=== PATIENT | female | born 1990 ===

== ENCOUNTER 2024-09-24 09:08 | Outpatient (CLI) | payer OTHER | END 2024-09-24 09:10 | disposition home or self-care (01) | LOC: PRENATAL 09:08 | PROVIDERS: ATTEND Obstetrics & Gynecology Maternal & Fetal Medicine | DX: O36.80X0 Pregnancy with inconclusive fetal viability, not applicable or unspecified (principal); Z36.82 Encounter for antenatal screening for nuchal translucency; Z14.8 Genetic carrier of other disease; O34.10 Maternal care for benign tumor of corpus uteri, unspecified trimester; Z3A.14 14 weeks gestation of pregnancy ==

== ENCOUNTER 2024-11-11 08:10 | Outpatient (CLI) | payer OTHER | END 2024-11-11 08:11 | disposition home or self-care (01) | LOC: PRENATAL 08:10 | PROVIDERS: ATTEND Obstetrics & Gynecology Maternal & Fetal Medicine | DX: O44.00 Complete placenta previa NOS or without hemorrhage, unspecified trimester (principal); O34.10 Maternal care for benign tumor of corpus uteri, unspecified trimester; Z3A.20 20 weeks gestation of pregnancy ==

== ENCOUNTER 2025-01-06 09:19 | Outpatient (CLI) | payer OTHER | END 2025-01-06 09:20 | disposition home or self-care (01) | LOC: PRENATAL 09:19 | PROVIDERS: ATTEND Obstetrics & Gynecology Maternal & Fetal Medicine | DX: O26.849 Uterine size-date discrepancy, unspecified trimester (principal); O34.10 Maternal care for benign tumor of corpus uteri, unspecified trimester; O44.00 Complete placenta previa NOS or without hemorrhage, unspecified trimester; Z3A.29 29 weeks gestation of pregnancy ==

== ENCOUNTER 2025-02-17 09:18 | Outpatient (CLI) | payer OTHER | END 2025-02-17 09:19 | disposition home or self-care (01) | LOC: PRENATAL 09:18 | PROVIDERS: ATTEND Obstetrics & Gynecology Maternal & Fetal Medicine | DX: O26.849 Uterine size-date discrepancy, unspecified trimester (principal); O36.8199 Decreased fetal movements, unspecified trimester, other fetus; O34.10 Maternal care for benign tumor of corpus uteri, unspecified trimester; Z3A.34 34 weeks gestation of pregnancy ==

== ENCOUNTER 2025-03-23 08:33 | Inpatient (IN) | payer OTHER ==
[~2025-03-23] VITALS: Ht 160 cm; Wt 68.9 kg
[2025-03-23 07:42] VITALS: BP 102/70
[2025-03-23] MEDS ORDERED: PRENATAL + DHA1 EAC1 PO (08:37)
[2025-03-23 10:13] VITALS: BP 102/70
[2025-03-23] MEDS ORDERED: RINGERS SOLUTION,LACTATED 1,000 ML IV SCH (11:15)
[2025-03-23 11:42] VITALS: BP 109/76; O2SAT 100
[2025-03-23 12:29] LABS: URINE APPEARANCE Clear; URINE BACTERIA 224.9 uL (0.0-1933); URINE BILIRRUBIN Negative (NEGATIVE); URINE BLOOD Negative; URINE COLOR Yellow; URINE EPITHELIAL CELLS 12.8 uL (0.0-38.8); URINE GLUCOSE Negative (NEGATIVE); URINE KETONE Negative (NEGATIVE); URINE LEUKOCYTE Negative; URINE NITRATE Negative; URINE PROTEIN Negative (NEGATIVE); URINE UROBILINOGEN 0.2 E.U./dl; URINE WBC 9.9 uL (0.0-23.2)
[2025-03-23 12:48] LABS: INR < 0.93; PARTIAL THROMBOPLASTIN TIME 25.9 SECONDS (22.0-34.0); PROTHROMBIN TIME 9.8 SECONDS (9.0-11.5)
[2025-03-23 13:08] LABS: BASO % 0.4 % (0.1-1.2); EOS # 0.23 (0.04-0.54); EOS % 2.3 % (0.7-7.0); HEMATOCRIT 35.8 % (34.1-44.9); HEMOGLOBIN 11.3 g/dL (11.2-15.7); LYMPH # 2.15 (1.18-3.74); LYMPH % 21.9 % (19.3-53.1); MEAN CORPUSCULAR HEMOGLOBIN 27.8 pg (25.6-32.2); MONO # 0.57 (0.24-0.82); MONO % 5.8 % (4.7-12.5); NEUT # 6.79 (1.56-6.13); NEUT % 69.2 % (34.0-71.1); PLATELET COUNT 191 K/uL (163-369); RED BLOOD COUNT 4.07 M/uL (3.93-5.22); RED CELL DISTRIBUTION WIDTH 14.1 % (11.6-14.4)
[2025-03-23 13:24] LABS: ALBUMIN 2.6 gm/dL (3.4-5.0); BILIRUBIN TOTAL 0.4 mg/dL (0.3-1.2); CALCIUM 8.9 mg/dL (8.5-10.1); CREATININE SERUM 0.44 mg/dL (0.55-1.02); GFR 165.71; GLOBULINA 3.6 G/DL (2.4-3.5); POTASSIUM 4.57 mEq/L (3.5-5.1); TOTAL PROTEIN 6.2 gm/dL (6.4-8.2)
[2025-03-23 15:37] VITALS: BP 116/68
[2025-03-23] MEDS ORDERED: MISOPROSTOL 25 MCG/4 ML GEL.W.APPL ONE (16:50)
[2025-03-23] MEDS ORDERED: MISOPROSTOL 25 MCG/4 ML GEL.W.APPL VAG ONE ×2 (17:15→21:45)
[2025-03-23 19:22] VITALS: BP 96/80
[2025-03-23 23:23] VITALS: BP 107/66
[2025-03-24] VITALS (7 sets, daily range): BP systolic 97–121; BP diastolic 63–73
[2025-03-24] MEDS ORDERED: MISOPROSTOL 25 MCG/4 ML GEL.W.APPL ONE (08:13)
[2025-03-24] MEDS ORDERED: MISOPROSTOL 25 MCG/4 ML GEL.W.APPL VAG ONE (08:45)
[2025-03-24] MEDS ORDERED: MISOPROSTOL 25 MCG/4 ML GEL.W.APPL VAG STA (16:46)
[2025-03-24] MEDS ORDERED: MORPHINE SULFATE 4 MG/ML CARTRIDGE IV ONE ×2 (19:45→21:40)
[2025-03-24] MEDS ORDERED: OXYTOCIN 20 UNITS/1000ML RL PIGGYBAG IV ONE (23:32)
[2025-03-24] MEDS ORDERED: ERYTHROMYCIN BASE OPHT 1GM EACH TUBE OP ONE (23:32)
[2025-03-24] MEDS ORDERED: CHLORHEXIDINE GLUCONATE 120 ML BOTTLE TOP ONE (23:32)
[2025-03-24] MEDS ORDERED: OXYTOCIN 10 UNITS/ML VIAL ONE (23:33)
[2025-03-24] MEDS ORDERED: LIDOCAINE HCL 1% 10ML VIAL ONE (23:33)
[2025-03-25] VITALS (7 sets, daily range): BP systolic 98–129; BP diastolic 55–84
[2025-03-25] MEDS ORDERED: MORPHINE SULFATE 2 MG/ML SYRINGE IV ONE (02:45)
[2025-03-25] MEDS ORDERED: MORPHINE SULFATE 4 MG/ML VIAL IV ONE (02:45)
[2025-03-25] MEDS ORDERED: OXYTOCIN 20 UNITS/500ML RL PIGGYBAG IV ONE (04:22)
[2025-03-25] MEDS ORDERED: OXYTOCIN 500 ML IV SCH (05:30)
[2025-03-25] MEDS ORDERED: OXYTOCIN 10 UNITS/ML VIAL IM STA (08:31)
[2025-03-25] MEDS ORDERED: LIDOCAINE HCL 1% 10ML VIAL IJ ONE (08:45)
[2025-03-25] MEDS ORDERED: CHLORHEXIDINE GLUCONATE 120 ML BOTTLE TP SCH (08:45)
[2025-03-25] MEDS ORDERED: IBUprofen 400 MG TABLET PO PRN (08:45)
[2025-03-25] MEDS ORDERED: ERYTHROMYCIN BASE OPHT 1GM EACH TUBE OP ONE (08:45)
[2025-03-25] MEDS ORDERED: OXYTOCIN 1,000 ML IV SCH (08:45)
[2025-03-25 15:58] LABS: BASO % 0.1 % (0.1-1.2); EOS # 0.01 (0.04-0.54); HEMATOCRIT 32.2 % (34.1-44.9); HEMOGLOBIN 10.3 g/dL (11.2-15.7); LYMPH # 1.92 (1.18-3.74); MEAN CORPUSCULAR HEMOGLOBIN 27.6 pg (25.6-32.2); MONO # 1.06 (0.24-0.82); MONO % 4.9 % (4.7-12.5); NEUT # 18.32 (1.56-6.13); NEUT % 85.5 % (34.0-71.1); PLATELET COUNT 246 K/uL (163-369); RED BLOOD COUNT 3.73 M/uL (3.93-5.22); RED CELL DISTRIBUTION WIDTH 14.2 % (11.6-14.4)
[2025-03-26] VITALS: BP 91/57
[2025-03-26 09:25] VITALS: BP 111/72
[2025-03-26] MEDS ORDERED: DOCUSATE SODIUM 100MG CAP PO SCH ×2 (11:10→11:32)
[2025-03-26] MEDS ORDERED: MINERAL OIL 30 ML BLIST.PACK PO NR (11:40)
[2025-03-26] MEDS ORDERED: MAGNESIUM HYDROXIDE 30 ML BLIST.PACK PO NR (13:15)
[2025-03-26 16:37] VITALS: BP 106/73
[2025-03-26 22:08] VITALS: BP 112/64
[2025-03-27 01:14] VITALS: BP 106/69
[2025-03-27 09:10] VITALS: BP 111/74
[2025-03-27] MEDS ORDERED: HYDROCORTISONE ACETATE 25 MG/SUPP.RECT SUPP.RECT RECTAL NR (10:45)
== END 2025-03-27 13:48 | disposition home or self-care (01) | DRG 806 ==
LOC: OBS/DEL 08:33 → LDR 10:54 → OB/GYN 03-25 08:41
PROVIDERS: ADMIT Obstetrics & Gynecology; ATTEND Obstetrics & Gynecology
PROC: 3E0P7VZ Introduction of Hormone into Female Reproductive, Via Natural or Artificial Opening (ICD-10-PCS; 2025-03-23)
PROC: BY4FZZZ Ultrasonography of Third Trimester, Single Fetus (ICD-10-PCS; 2025-03-23)
PROC: 4A1HXCZ Monitoring of Products of Conception, Cardiac Rate, External Approach (ICD-10-PCS; 2025-03-23)
PROC: 10E0XZZ Delivery of Products of Conception, External Approach (ICD-10-PCS; principal; 2025-03-25)
PROC: 0KQM0ZZ Repair Perineum Muscle, Open Approach (ICD-10-PCS; 2025-03-25)
PROC: 0UQG7ZZ Repair Vagina, Via Natural or Artificial Opening (ICD-10-PCS; 2025-03-25)
PROC: 3E033VJ Introduction of Other Hormone into Peripheral Vein, Percutaneous Approach (ICD-10-PCS; 2025-03-25)
DX: O70.1 Second degree perineal laceration during delivery (principal); O41.03X0 Oligohydramnios, third trimester, not applicable or unspecified; O26.843 Uterine size-date discrepancy, third trimester; O36.8130 Decreased fetal movements, third trimester, not applicable or unspecified; Z37.0 Single live birth; Z3A.39 39 weeks gestation of pregnancy